=== PATIENT | male | born 1990 | race Caucasian/White ===

== ENCOUNTER 2021-04-28 00:04 | Emergency (ER) | payer BC ==
[2021-04-28] MEDS ORDERED: Bupivacaine 0.5% 10 ML VIAL ONE (00:16)
[2021-04-28] MEDS ORDERED: Fluorescein Opthalmic Strip ONE (00:16)
[2021-04-28] MEDS ORDERED: Tetracaine 0.5% PF 4 ML BOT ONE (00:17)
[2021-04-28] MEDS ORDERED: traMADol HCl 50 MG TAB ONE (00:28)
== END 2021-04-28 00:35 | disposition home or self-care (01) ==
LOC: NAV ERS 00:04
DX: S05.01XA Injury of conjunctiva and corneal abrasion without foreign body, right eye, initial encounter (principal); F17.200 Nicotine dependence, unspecified, uncomplicated; W50.0XXA Accidental hit or strike by another person, initial encounter
CPT/HCPCS: 99283; J3490